=== PATIENT | male | born 1995 | race Caucasian/White ===

== ENCOUNTER 2021-08-02 20:34 | Emergency (ER) | payer OTHER ==
[2021-08-02] MEDS ORDERED: Sodium Chloride 0.9% 1,000 ML IV ONE (22:29)
[2021-08-02 23:12] LABS: CORONAVIRUS COVID-19 NAA NEGATIVE (NEGATIVE)
[2021-08-03 01:17] VITALS: BP 127/75; PULSE 102
== END 2021-08-03 00:50 | disposition home or self-care (01) ==
LOC: JD.ED 20:34
DX: R79.89 Other specified abnormal findings of blood chemistry (principal); Z20.822 Contact with and (suspected) exposure to COVID-19; Z88.0 Allergy status to penicillin
CPT/HCPCS: 0240U; 36415; 70450; 80053; 80074; 81001; 83735; 85025; 99284; J7030; 99285